=== PATIENT | female | born 2000 | race Hispanic/Latino ===

== ENCOUNTER 2023-06-18 16:53 | Emergency (ER) | payer OTHER | END 2023-06-18 18:00 | disposition home or self-care (01) | LOC: CSHERS 16:53 | DX: S16.1XXA Strain of muscle, fascia and tendon at neck level, initial encounter (principal); V49.40XA Driver injured in collision with unspecified motor vehicles in traffic accident, initial encounter | CPT/HCPCS: 99283 ==